=== PATIENT | male | born 1995 | race Hispanic/Latino ===

== ENCOUNTER 2023-02-01 11:26 | Emergency (ER) | payer OTHER ==
[2023-02-01] VITALS (8 sets, daily range): BP systolic 114–128; BP diastolic 62–79
[~2023-02-01] VITALS: Ht 162.6 cm; Wt 81.6 kg
[2023-02-01 13:06] LABS: BASO% 0.3 % (0-3); EOS% 0.3 % (0-8); HEMATOCRIT 41.2 % (39.0-50.0); HEMOGLOBIN 13.3 g/dl (14.0-18.0); IMMATURE GRANULOCYTES 0.4 % (0.0-5.0); LYMPH% 14.2 % (15-41); MEAN CELL VOLUME 90.7 fL CALC (80.0-100.0); MEAN CORPUSCULAR HGB 29.3 pG CALC (26.0-32.0); MEAN CORPUSCULAR HGB CONC 32.3 g/dL CAL (32.0-36.0); MONO% 4.3 % (2-13); NEUT# 7.99 thou/uL (1.82-7.42); NEUT% 80.5 % (42-76); RED BLOOD COUNT 4.54 mill/uL (4.70-6.10); RED CELL DISTRI WIDTH 13.1 % (11.5-15.5)
[2023-02-01 13:25] LABS: ALBUMIN 4.4 g/dL (3.2-5.0); ALKALINE PHOSPHATASE 91 u/l (38-126); ANION GAP 12 (6-22 (CALC)); BILIRUBIN, TOTAL 0.5 mg/dL (0.2-1.3); BUN 20 mg/dL (9-20); BUN/CREATININE RATIO 23 (12-20 (CALC)); CARBON DIOXIDE 26 mmol/l (22-30); CHLORIDE 102 mmol/l (95-108); CREATININE 0.9 mg/dL (0.7-1.3); GFR FOR AFR.AMER. > 60 ML/MIN (>=60 (CALC)); GFR OTHER RACES > 60 ML/MIN (>=60 (CALC)); LIPASE 54 u/l (23-300); POTASSIUM 4.1 mmol/l (3.5-5.1); SGOT/AST 34 u/l (17-59); SODIUM 137 mmol/l (137-146); TOTAL PROTEIN 7.5 g/dL (6.3-8.2)
== END 2023-02-01 15:20 | disposition home or self-care (01) | DRG 392 ==
LOC: ED 11:26
PROVIDERS: Family Medicine
DX: R10.30 Lower abdominal pain, unspecified (principal); M54.2 Cervicalgia; V59.40XA Driver of pick-up truck or van injured in collision with unspecified motor vehicles in traffic accident, initial encounter
CPT/HCPCS: Q9967